=== PATIENT | female | born 1965 | race Caucasian/White ===

== ENCOUNTER 2021-03-25 10:15 | Emergency (ER) | payer SELFPAY ==
[2021-03-25] MEDS ORDERED: Lidocaine 1% with EPINEPHrine 1:100,000 50 ML MDV INFILT STA (11:00)
[2021-03-25] MEDS ORDERED: Bacitracin Oint 1 GM U/D Packet TOP ONE (11:00)
--- NOTE | 2021-03-25 11:53 | EDM.PDOC ---
ED HPI GENERAL MEDICAL PROBLEM - General Chief Complaint: Bite:Animal, Insect Stated Complaint: DOG BITE Time Seen by Provider: 03/25/21 11:02 Source of Information: Reports: Patient, RN Notes Reviewed History Limitations: Reports: No Limitations - History of Present Illness INITIAL COMMENTS - FREE TEXT/NARRATIVE: Patient complains of laceration to left forearm from dog bite that occurred at 0940 today. She states she had her small dog in her arms and another family dog reached up to bite at the small dog. Her left forearm was bit in the process. She states the dog has all its immunizations. She denies any other injury, trauma, fever, chills, nausea, vomiting, or other concerns. - Related Data Allergies Allergy/AdvReac Type Severity Reaction Status Date / Time codeine Allergy Vomiting Verified 03/25/21 10:49 Sulfa (Sulfonamide Allergy Itching Verified 03/25/21 10:49 Antibiotics) Home Meds: Home Meds Levothyroxine Sodium [Levo-T] 1 tab PO DAILY 03/25/21 [History] Past Medical History Endocrine/Metabolic History: Reports: Hypothyroidism - Past Surgical History Female Surgical History: Reports: LEEP Social & Family History - Tobacco Use Tobacco Use Status *Q: Never Tobacco User ED ROS GENERAL - Review of Systems Review Of Systems: See Below Constitutional: Reports: No Symptoms HEENT: Reports: No Symptoms Respiratory: Reports: No Symptoms Cardiovascular: Reports: No Symptoms Endocrine: Reports: No Symptoms GI/Abdominal: Reports: No Symptoms : Reports: No Symptoms Musculoskeletal: Reports: No Symptoms Skin: Reports: Wound (lacration left forearm from dog bite, [employer]) Neurological: Reports: No Symptoms Psychiatric: Reports: No Symptoms Hematologic/Lymphatic: Reports: No Symptoms Immunologic: Reports: No Symptoms ED EXAM, ANIMAL BITE - Physical Exam Exam: See Below Exam Limited By: No Limitations General Appearance: Alert, WD/WN, No Apparent Distress Head: Atraumatic, Normocephalic Neck: Normal Inspection, Supple, Non-Tender, Full Range of Motion. No: Ly mphadenopathy (R), Lymphadenopathy (L) Respiratory/Chest: No Respiratory Distress, Lungs Clear, Normal Breath Sounds, No Accessory Muscle Use, Chest Non-Tender. No: Crackles, Rales, Rhonchi, Wheezing, Stridor Cardiovascular: Normal Peripheral Pulses, Regular Rate, Rhythm, No Edema, No Gallop, No Murmur, No Rub Peripheral Pulses: 4+: Radial (L), Radial (R) Back Exam: Normal Inspection, Full Range of Motion. No: CVA Tenderness (R), CVA Tenderness (L) Extremities: Normal Range of Motion, Non-Tender, Normal Capillary Refill, Other (1.2cm laceration left forearm, linear, bleeding controlled. ) Neurological: Alert, Oriented, CN II-XII Intact, Normal Cognition, Normal Gait, Normal Reflexes, No Motor/Sensory Deficits Psychiatric: Normal Affect, Normal Mood Skin Exam: Warm/Dry, Other (1.2cm linear laceration left forearm, bleeding controlled. ) Lymphatic: No Adenopathy ED ANIMAL BITE PROCEDURES - Laceration/Wound Repair Left Upper Arm Lac/Wound Length In cm: 1.2 Appearance: Superficial Distal NVT: Neuro & Vascular Intact, No Tendon Injury Anesthetic Type: Local Local Anesthesia - Lidocaine (Xylocaine): 1% with EPI Local Anesthetic Volume: 1cc Skin Prep: Chlorhexidine (Hibiciens), Saline Saline Irrigation (cc's): 10 Exploration/Debridement/Repair: Wound Explored, In a Bloodless Field, Explored to Base, No Foreign Material Found Closed With: Sutures Suture Size: 4-0 # of Sutures: 1 Suture Type: Nylon, Running Drain Placement: No Sterile Dressing Applied: Nurse Tetanus Status Addressed: Yes Complications: No Progress/Comments: Patient tolerated well. Course - Vital Signs Last Recorded V/S: Last Vital Signs Temp 36.2 C 03/25/21 10:54 Pulse 66 03/25/21 10:54 Resp 18 03/25/21 10:54 BP 141/82 H 03/25/21 10:54 Pulse Ox 99 03/25/21 10:54 - Orders/Labs/Meds Meds: Medications Discontinued Medications Generic Name Dose Route Start Last Admin Trade Name Amador PRN Reason Stop Dose Admin Bacitracin 1 dose 03/25/21 11:00 03/25/21 11:11 Bacitracin Oint 1 Gm U/D Packet TOP 03/25/21 11:01 1 dose ONETIME ONE Administration Lidocaine/Epinephrine 2 ml 03/25/21 11:00 03/25/21 11:10 Lidocaine 1% With Epinephrine 1:100,000 50 Ml Mdv INFILT 03/25/21 11:01 2 ml NOW STA Administration Departure - Departure Time of Disposition: 11:50 Disposition: Home, Self-Care 01 Condition: Good Clinical Impression: Laceration, Dog bite of extremity - Discharge Information Instructions: Animal Bite, Adult, [id number], Laceration Care, Adult Referrals: PCP,None [Primary Care Provider] - Forms: ED Department Discharge Additional Instructions: You have been evaluated and treated for a dog bite with 1.2cm laceration of the left inner forearm. The laceration was cleansed, sutured with one running suture. Keep the area clean and dry. Wash once to twice per day with mild soap, water and dry. Apply bacitracin to the area once or twice per day until healed. Have suture removed in 6 to 10 days. Watch for signs of infection such as significant redness, warmth or a red streak moving up your arm. If this happens, take cephalexin 1000mg by mouth twice per day for infection. If no improvement after 48 hours report to your provider or emergency room for evaluation and care. Return for any worsening, issues or concerns. Sepsis Event Note (ED) - Evaluation Sepsis Screening Result: No Definite Risk - Assessment/Plan Assessment:: Laceration, Dog bite of extremity Plan: Patient evaluated and treated for a dog bite with 1.2cm laceration of the left inner forearm. The laceration was cleansed, sutured with one running suture. Keep the area clean and dry. Wash once to twice per day with mild soap, water and dry. Apply bacitracin to the area once or twice per day until healed. Have suture removed in 6 to 10 days. Watch for signs of infection such as significant redness, warmth or a red streak moving up your arm. If this happens, take cephalexin 1000mg by mouth twice per day for infection. If no improvement after 48 hours report to your provider or emergency room for evaluation and care. Return for any worsening, issues or concerns.
== END 2021-03-25 12:05 | disposition home or self-care (01) ==
LOC: JP.ED 10:15
DX: S51.852A Open bite of left forearm, initial encounter (principal); Z88.2 Allergy status to sulfonamides; Z88.5 Allergy status to narcotic agent; Z79.899 Other long term (current) drug therapy; W54.0XXA Bitten by dog, initial encounter
CPT/HCPCS: 12001; 99282-25